=== PATIENT | female | born 1985 | race Caucasian/White ===

== ENCOUNTER 2019-02-04 16:27 | Emergency (ER) | payer OTHER ==
[~2019-02-04] VITALS: Ht 154.9 cm; Wt 81.8 kg
[~2019-02-04 16:27] MED LIST: CEPHALEXIN500 M1 OR; ROBITUSSIN AC10 ML OR
[2019-02-04 17:08] VITALS: BP 145/79
== END 2019-02-04 17:08 | disposition home or self-care (01) ==
LOC: ED 16:27
DX: Z04.89 Encounter for examination and observation for other specified reasons (principal)

== ENCOUNTER 2019-09-08 | Emergency (ER) | payer BC | END 2019-09-08 10:51 | disposition home or self-care (01) | DRG 923 | DX: T75.89XA Other specified effects of external causes, initial encounter (principal); X58.XXXA Exposure to other specified factors, initial encounter; Y92.009 Unspecified place in unspecified non-institutional (private) residence as the place of occurrence of the external cause; F17.210 Nicotine dependence, cigarettes, uncomplicated ==

== ENCOUNTER 2019-09-08 | Emergency (ER) | payer BC | END 2019-09-08 14:57 | disposition home or self-care (01) | DRG 923 | DX: T75.89XA Other specified effects of external causes, initial encounter (principal); F17.210 Nicotine dependence, cigarettes, uncomplicated; X58.XXXA Exposure to other specified factors, initial encounter; Y92.009 Unspecified place in unspecified non-institutional (private) residence as the place of occurrence of the external cause ==

== ENCOUNTER 2020-06-16 18:04 | Emergency (ER) | payer BC ==
[~2020-06-16] VITALS: Ht 154.9 cm; Wt 78.0 kg
[2020-06-16 18:47] LABS: URINE BILIRUBIN - DIPSTICK NEGATIVE (NEGATIVE); URINE BLOOD DIPSTICK NEGATIVE (NEGATIVE); URINE COLOR YELLOW; URINE GLUCOSE - DIPSTICK NEGATIVE (NEGATIVE); URINE KETONE NEGATIVE (NEGATIVE); URINE LEUK ESTERASE NEGATIVE (NEGATIVE); URINE NITRITE - DIPSTICK NEGATIVE (Negative); URINE PH 5.5 (4.5-8.0); URINE PROTEIN - DIPSTICK NEGATIVE (NEG-TRACE); URINE SPECIFIC GRAVITY >=1.030; URINE UROBILINOGEN - DIPSTICK 0.2 E.U./dL (0.2)
[2020-06-16 19:30] LABS: HEMOGLOBIN 16.1 g/dl (12.0-16.0); IMMATURE GRANULOCYTES 0.5 % (0.0-5.0); MEAN CELL VOLUME 85.5 fL CALC (80.0-100.0); MEAN CORPUSCULAR HGB 28.1 pG CALC (26.0-32.0); MEAN CORPUSCULAR HGB CONC 32.9 g/dL CAL (32.0-36.0); NEUT# 10.66 thou/uL (2.00-7.15); RED BLOOD COUNT 5.73 mill/uL (4.20-5.60); RED CELL DISTRI WIDTH 13.2 % (11.5-15.5)
[2020-06-16 19:46] LABS: ALBUMIN 4.6 g/dL (3.2-5.0); ALKALINE PHOSPHATASE 114 u/l (38-126); ANION GAP 15 (6-22 (CALC)); BUN 15 mg/dL (7-17); BUN/CREATININE RATIO 23 (12-20 (CALC)); CARBON DIOXIDE 21 mmol/l (22-30); CHLORIDE 106 mmol/l (95-108); CREATININE 0.6 mg/dL (0.5-1.0); GFR > 60 ML/MIN (>=60 (CALC)); GFR FOR AFR.AMER. > 60 ML/MIN (>=60 (CALC)); POTASSIUM 4.4 mmol/l (3.5-5.1); SGOT/AST 25 u/l (14-36); SODIUM 138 mmol/l (137-146)
[2020-06-16 19:47] LABS: BILIRUBIN, TOTAL 0.9 mg/dL (0.0-1.4); TOTAL PROTEIN 7.7 g/dL (6.3-8.2)
[2020-06-16 21:30] VITALS: BP 127/85
== END 2020-06-16 21:30 | disposition home or self-care (01) | DRG 696 ==
LOC: ED 18:04
PROVIDERS: Emergency Medicine
DX: R30.0 Dysuria (principal); I10 Essential (primary) hypertension; J45.909 Unspecified asthma, uncomplicated; F17.200 Nicotine dependence, unspecified, uncomplicated; Z87.440 Personal history of urinary (tract) infections
CPT/HCPCS: Q9967

== ENCOUNTER 2020-11-19 20:17 | Emergency (ER) | payer BC ==
[~2020-11-19] VITALS: Ht 154.9 cm; Wt 79.6 kg
[2020-11-19 22:03] LABS: HEMATOCRIT 46.5 % (37.0-47.0); HEMOGLOBIN 14.9 g/dl (12.0-16.0); IMMATURE GRANULOCYTES 0.5 % (0.0-5.0); MEAN CELL VOLUME 86.8 fL CALC (80.0-100.0); MEAN CORPUSCULAR HGB 27.8 pG CALC (26.0-32.0); NEUT# 8.61 thou/uL (2.00-7.15); RED BLOOD COUNT 5.36 mill/uL (4.20-5.60); RED CELL DISTRI WIDTH 13.1 % (11.5-15.5)
[2020-11-19 22:13] LABS: ALBUMIN 4.3 g/dL (3.2-5.0); ALKALINE PHOSPHATASE 86 u/l (38-126); ANION GAP 11 (6-22 (CALC)); BILIRUBIN, TOTAL 0.8 mg/dL (0.0-1.4); BUN 13 mg/dL (7-17); BUN/CREATININE RATIO 19 (12-20 (CALC)); CHLORIDE 101 mmol/l (95-108); CREATININE 0.7 mg/dL (0.5-1.0); GFR > 60 ML/MIN (>=60 (CALC)); GFR FOR AFR.AMER. > 60 ML/MIN (>=60 (CALC)); POTASSIUM 3.6 mmol/l (3.5-5.1); SGOT/AST 20 u/l (14-36); SODIUM 135 mmol/l (137-146); TOTAL PROTEIN 7.6 g/dL (6.3-8.2)
[2020-11-19 22:14] LABS: CARBON DIOXIDE 27 mmol/l (22-30)
[2020-11-20 00:47] VITALS: BP 130/73
== END 2020-11-20 00:51 | disposition home or self-care (01) | DRG 313 ==
LOC: ED 20:17
PROVIDERS: Family Medicine
DX: R07.9 Chest pain, unspecified (principal); E78.5 Hyperlipidemia, unspecified; I10 Essential (primary) hypertension; T46.6X6A Underdosing of antihyperlipidemic and antiarteriosclerotic drugs, initial encounter; J45.909 Unspecified asthma, uncomplicated; Z87.440 Personal history of urinary (tract) infections; Z91.128 Patient's intentional underdosing of medication regimen for other reason

== ENCOUNTER 2022-09-13 20:19 | Emergency (ER) | payer BC, OTHER ==
[~2022-09-13] VITALS: Ht 157.5 cm; Wt 88.0 kg
[~2022-09-13 20:19] MED LIST changes: +OMEPRAZOLE20 MG PO
[2022-09-13 20:42] VITALS: BP 150/91
[2022-09-13 20:45] VITALS: BP 127/83
[2022-09-13] MEDS ORDERED: AMOX/K CLAV875 M1 PO (20:47)
[2022-09-13 21:00] VITALS: BP 122/82
[2022-09-13 21:21] VITALS: BP 122/82
== END 2022-09-13 21:13 | disposition home or self-care (01) | DRG 153 ==
LOC: ED 20:19
DX: J01.90 Acute sinusitis, unspecified (principal); I10 Essential (primary) hypertension; J45.909 Unspecified asthma, uncomplicated